=== PATIENT | male | born 1965 | race Caucasian/White ===

== ENCOUNTER 2016-10-31 16:01 | Emergency (ER) | payer OTHER ==
[2016-10-31] MEDS ORDERED: Lidocaine 1% 5ml(IM or SUTURE)(PAIN CLINIC) ONE ×2 (16:18→16:32)
--- NOTE | 2016-10-31 17:31 | ED Physician Documentation ---
General Adult - HISTORIAN Historian: patient, spouse - HPI Stated Complaint: laceration Chief Complaint: General Adult Onset: minutes Timing: still present Severity: moderate Further Comments: yes (Pt is a 51 yo with a large laceration to his L thigh. Pt was using a chain saw while standing on a ladder and slipped and fell and the chain saw cut into his L thigh. Pt is unsure of tetanus status.) - ROS CONST: no problems EYES/ENT: none CVS/RESP: none GI/: none MS/SKIN/LYMPH: other (laceration L thigh) - PAST HX Past History: other (GERD) Surgeries/Procedures: other (tonsillectomy) Allergies/Adverse Reactions: Allergies Allergy/AdvReac Type Severity Reaction Status Date / Time No Known Drug Allergies Allergy Verified 10/31/16 17:00 Home Medications: Ambulatory Orders Medication Instructions Recorded Cetirizine HCl [Zyrtec] 10 mg PO DAILY 10/31/16 Omeprazole [Prilosec] 20 mg PO DAILY 10/31/16 - SOCIAL HX Smoking History: non-smoker - FAMILY HX Family History: No - VITAL SIGNS Vital Signs: Vital Signs Temp Pulse Resp BP Pulse Ox 98.7 F 87 19 137/78 96 10/31/16 16:04 10/31/16 16:04 10/31/16 16:04 10/31/16 16:04 10/31/16 16:04 - REVIEWED ASSESSMENTS Nursing Assessment Reviewed: Yes Vitals Reviewed: Yes Procedures Wound Location: lower extremity Wound's Depth, Shape: superficial (exposing muscle, but muscle not lacerated), irregular Wound Explored: no foreign body removed Anesthesia: 1% Lidocaine Volume of Anesthetic: 18 cc Wound Debrided: minimal Wound Repaired With: sutures Suture Size/Type: 4:0, proline, nylon Number of Sutures: 15 Sterile Dressing Applied?: Yes Splint Applied?: No Progress - Progress Progress: Rx Keflex 500 mg. Take one every 8 hrs for 7 days. Follow up with primary care provider in 7 to 10 days for suture removal. ED Results Lab/Radiology - Orders Orders: ED Orders Category Date Time Status Lidocaine 1% 5ml(IM or SUTURE) [Xylocaine] Med 10/31/16 16:18 Discontinued 100 mg .ROUTE .STK-MED ONE Lidocaine 1% 5ml(IM or SUTURE) [Xylocaine] Med 09/10/17 16:32 Discontinued 100 mg .ROUTE .STK-MED ONE General Adult Physical Exam - PHYSICAL EXAM GENERAL APPEARANCE: moderate distress NECK: normal inspection, supple RESPIRATORY: no resp distress CVS: reg rate & rhythm, heart sounds normal BACK: normal inspection, no CVA tenderness SKIN: other (laceration 14 cm, L thigh, ventral surface) EXTREMITIES: normal range of motion, no edema, other (laceration 14 cm, L thigh , ventral surface) NEURO: oriented X3, motor nml, sensation nml Discharge Clincal Impression: Large laceration L thigh Referrals: Tej Richards MD [Primary Care Provider] - Home Medications: Ambulatory Orders Cetirizine HCl [Zyrtec] 10 mg PO DAILY 10/31/16 Omeprazole [Prilosec] 20 mg PO DAILY 10/31/16 Condition: Stable Disposition: 01 HOME, SELF-CARE Decision to Admit: NO Decision Time: 17:34
[2016-10-31] MEDS ORDERED: CEPHALEXIN 250 MG CAPSULE PO ONE (17:34)
[2016-10-31] MEDS ORDERED: Lidocaine 1% 5ml(IM or SUTURE)(PAIN CLINIC) IJ ONE ×4 (17:42→17:43)
[2016-10-31] MEDS ORDERED: DIPH,PERTUSS(ACELL),TET VAC/PF 0.5 ML DISP.SYRIN IM ONE (17:44)
[2016-10-31 18:01] VITALS: BP 114/75
== END 2016-10-31 17:59 | disposition home or self-care (01) ==
LOC: ED 16:01
DX: S71.112A Laceration without foreign body, left thigh, initial encounter (principal); X58.XXXA Exposure to other specified factors, initial encounter; Y93.9 Activity, unspecified; Y99.9 Unspecified external cause status
CPT/HCPCS: 12005; 90471; 90715; 99283